=== PATIENT | male | born 1980 | race Caucasian/White ===

== ENCOUNTER 2017-06-15 02:46 | Emergency (ER) | payer SELFPAY ==
[~2017-06-15] VITALS: Ht 175.3 cm; Wt 70.3 kg
[~2017-06-15 02:46] MED LIST: IBUP600T16 PO
[2017-06-15 02:50] VITALS: BP 143/96
--- NOTE | 2017-06-15 04:18 | PHYS DOC ---
Past History Past Medical History: Hepatitis Past Surgical History: No Surgical History Alcohol Use: Sober Drug Use: None Adult General Chief Complaint Chief Complaint: foot pain HPI HPI Patient is a 36 year old male who presents with foot blisters bilaterally. The patient states he noticed blisters on bilateral feet this morning. He spends a lot of time walking. Denies fevers, chills, drainage, erythema/warmth/swelling. Review of Systems Review of Systems Constitutional: Denies fever or chills Respiratory: Denies cough or shortness of breath Cardiovascular: Denies chest pain Musculoskeletal: reports foot blisters Integument: reports foot blisters All other systems were reviewed and found to be within normal limits, except as documented in this note. Allergies Allergies Allergies Coded Allergies Type Severity Reaction Last Updated Verified No Known Drug Allergies 03/21/16 No Physical Exam Physical Exam Constitutional: Well developed, well nourished, no acute distress, non-toxic appearance. HENT: Normocephalic, atraumatic, bilateral external ears normal, oropharynx moist, nose normal. Eyes: conjunctiva normal, no discharge. Cardiovascular: no edema. Lungs & Thorax: no respiratory distress. Abdomen: nondistended. Skin: bilateral plantar surfaces of feet with small blisters over MTP joints, no erythema/warmth/swelling, no purulent drainage. blisters had been unroofed.. Extremities: blisters to feet bilaterally as above Neurologic: Alert and oriented X 3 EKG EKG [] Radiology/Procedures Radiology/Procedures [] Course & Med Decision Making Course & Med Decision Making Pertinent Labs and Imaging studies reviewed. (See chart for details) The patient presents with bilateral foot blisters. No sign of infection, localized to MTP. RN provided wound care. Recommend antibiotic ointment, mole skin, keep feet clean & air dry. Consider well fitted shoes. Follow up with primary care for additional concerns. Come back for signs/symptoms of wound infection or otherwise worsening condition. Discharged home in stable condition. [] Dragon Disclaimer Dragon Disclaimer This electronic medical record was generated, in whole or in part, using a voice recognition dictation system. Departure Departure: Impression: Primary Impression: Blister of foot Disposition: HOME, SELF-CARE Condition: STABLE Referrals: PCP,NO (PCP) Patient Instructions: Blisters Additional Instructions: You were seen in the emergency department today for foot blisters. Please keep feet clean & dry, allow feet to air dry when not walking, buy moleskin to protect feet, apply antibiotic ointment to prevent infection. Consider being fitted for new shoes to ensure proper fit. Follow up as needed with primary care or podiatry for additional concerns. Problem Qualifiers Primary Impression: Blister of foot Encounter type: initial encounter Laterality: unspecified laterality Qualified Codes: S90.829A - Blister (nonthermal), unspecified foot, initial encounter NELI SANTIAGO MD Jun 15, 2017 04:18
== END 2017-06-15 04:20 | disposition home or self-care (01) ==
LOC: ER 02:46
DX: S90.822A Blister (nonthermal), left foot, initial encounter (principal); S90.821A Blister (nonthermal), right foot, initial encounter; X58.XXXA Exposure to other specified factors, initial encounter; Y93.89 Activity, other specified; Y99.8 Other external cause status; Y92.89 Other specified places as the place of occurrence of the external cause
CPT/HCPCS: 99281; 99283

== ENCOUNTER 2021-10-29 05:32 | Emergency (ER) | payer SELFPAY ==
[~2021-10-29] VITALS: Ht 175.3 cm; Wt 64.1 kg
--- NOTE | 2021-10-29 05:36 | PHYS DOC ---
Past History Past Medical History: Other Past Surgical History: No Surgical History Alcohol Use: None Drug Use: Marijuana, Methamphetamine, Opiates General Adult HPI: HPI: ".. I having bad thoughts about living.... I am not really suicidal.. I could never kill myself.. .. I have had some chest pain tonight.. some heart racing....I feel like I am in high speed pursuit.. I am depressed and I do have anxiety.. but not thinking of killing my self..." Patient is a 41 year old male who presents with above hx and multiple complaints primarily chest pain and tachycardia. Patient denies any illicit drug use. Patient does smoke. No recent travel. Denies any specific trauma. Patient does have contusions to the left side of chest. No history immuno - suppression. Patient denies any thoughts of suicide or homicide.. Patient does complain of depression and anxiety. Review of Systems: Review of Systems: Constitutional: Denies fever or chills Eyes: Denies change in visual acuity HENT: Denies nasal congestion or sore throat Respiratory: Denies cough or shortness of breath Cardiovascular: Complains of chest wall pain, complaints of tachycardia GI: Denies abdominal pain, nausea, vomiting, bloody stools or diarrhea : Denies dysuria Musculoskeletal: Denies back pain or joint pain Integument: Denies rash Neurologic: Denies headache, focal weakness or sensory changes Endocrine: Denies polyuria or polydipsia Lymphatic: Denies swollen glands Psychiatric: Complains of depression or anxiety-but denies suicidal ideation or homicidal ideation Family History: Family History: Noncontributory to presentation Current Medications: Current Meds: See nursing for home meds Allergies: Allergies: Allergies Coded Allergies Type Severity Reaction Last Updated Verified No Known Drug Allergies 03/21/16 No Physical Exam: PE: Constitutional: , no acute distress, non-toxic appearance. [] HENT: Normocephalic, atraumatic, bilateral external ears normal, oropharynx moist, no oral exudates, nose normal. Extremely poor dentition Eyes: PERRLA, EOMI, conjunctiva normal, no discharge. [] Neck: Normal range of motion, no tenderness, supple, no stridor. [] Cardiovascular: Tachycardia heart rate regular rhythm, no murmur [] Lungs & Thorax: Bilateral breath sounds equal apex with scattered wheezes on auscultation [] patient does have contusions and scrapes/abrasions to the left chest wall Abdomen: Bowel sounds normal, soft, no tenderness, no masses, no pulsatile masses. [] Skin: Warm, dry, no erythema, no rash. [Tattoos. Back: No tenderness, no CVA tenderness. [] Extremities: No tenderness, no cyanosis, no clubbing, ROM intact, no edema. No cording. Neurologic: Alert and oriented X 3, moves extremities on request, has distal sensory, no focal deficits noted. Patient amatory without problems. Psychologic: Affect anxious, judgement normal, mood normal. Denies suicidal or homicidal ideation EKG: EKG: [] Radiology/Procedures: Radiology/Procedures: [] Heart Score: C/O Chest Pain: Yes Risk Factors: Risk Factors: DM, Current or recent (<one month) smoker, HTN, HLP, family history of CAD, obesity. Risk Scores: Score 0 - 3: 2.5% MACE over next 6 weeks - Discharge Home Score 4 - 6: 20.3% MACE over next 6 weeks - Admit for Clinical Observation Score 7 - 10: 72.7% MACE over next 6 weeks - Early Invasive Strategies Course & Med Decision Making: Course & Med Decision Making Pertinent Labs and Imaging studies reviewed. (See chart for details)\\ Pt endorsed to Dr. Yadav at shift change. He will make disposition. Labs, CXR and EKG pending at shift change. Impression: 1. Complaints of dysrhythmia- Tachycardia 2. Hx. Depression 3. Hx. Anxiety. [] Dragon Disclaimer: Dragon Disclaimer: This electronic medical record was generated, in whole or in part, using a voice recognition dictation system. Departure Departure: Referrals: PCP,NO (PCP) Dragon Disclaimer This chart was dictated in whole or in part using Voice Recognition software in a busy, high-work load, and often noisy Emergency Department environment. It may contain unintended and wholly unrecognized errors or omissions. ERAN GHOSH MD Oct 29, 2021 05:35
[2021-10-29 05:43] VITALS: BP 126/67
[2021-10-29] MEDS ORDERED: IV RINGERS SOLUTION,LACTATED 1,000 ML IV SCH (05:45)
--- NOTE | 2021-10-29 05:59 | EKG ---
[address] [address] Test Date: 2021-10-29 Test Time: 05:53:32 Pat Name: JHOANA TRAN Department: Room: Gender: M Medication Care Manager: : 1980 Requested By: ERAN GHOSH Order Number: [id number] Reading MD: Seveirano Clemons Measurements Intervals [place] Rate: 125 P: 13 [place]: 118 QRS: 67 QRSD: 84 T: 89 QT: 322 QTc: 467 Interpretive Statements SINUS TACHYCARDIA Electronically Signed On 10-30-2021 18:13:35 CDT by Severiano Clemons
[2021-10-29 06:07] LABS: BASO # 0.1 x10^3/uL (0.0-0.2); BASO % 1 % (0-3); EOS % 0 % (0-3); HEMATOCRIT 48.2 % (39.0-53.0); HEMOGLOBIN 16.4 g/dL (13.0-17.5); LYMPH # 1.8 x10^3/uL (1.0-4.8); LYMPH % 10 % (24-48); MEAN CORPUSCULAR HEMOGLOBIN 31 pg (25-35); MEAN CORPUSCULAR HGB CONC 34 g/dL (31-37); MEAN CORPUSCULAR VOLUME 92 fL (79-100); MONO # 1.9 x10^3/uL (0.0-1.1); MONO % 10 % (0-9); NEUT # 14.5 x10^3uL (1.8-7.7); NEUT % 79 % (31-73); PLATELET COUNT 292 x10^3/uL (140-400); RED BLOOD COUNT 5.23 x10^6/uL (4.30-5.70); RED CELL DISTRIBUTION WIDTH 12.7 % (11.5-14.5); WHITE BLOOD COUNT 18.2 x10^3/uL (4.0-11.0)
[2021-10-29 06:29] LABS: CALCIUM 9.1 mg/dL (8.5-10.1); GFR 82.3; POTASSIUM 4.6 mmol/L (3.5-5.1)
[2021-10-29 06:32] LABS: ETHANOL < 10 mg/dL (0-10); SALIC 1.5 mg/dL (2.8-20.0)
[2021-10-29 06:35] LABS: ACETAMIN < 2.0 mcg/mL (10-30)
[2021-10-29 06:45] LABS: ALBUMIN 4.2 g/dL (3.4-5.0); DIRECT BILIRUBIN 0.4 mg/dL (0.0-0.2); TOTAL BILIRUBIN 1.2 mg/dL (0.2-1.0); TOTAL PROTEIN 7.3 g/dL (6.4-8.2)
[2021-10-29 07:58] LABS: % ATYL 1 % (0-0); % BANDS 5 % (0-9); % LYMPHS 5 % (24-48); % MONOS 6 % (0-10); % SEGS 83 % (35-66)
[2021-10-29 08:01] LABS: PLT ESTIMATE ADEQUATE (ADEQUATE)
== END 2021-10-29 06:20 | disposition left against medical advice (07) ==
LOC: ER 05:32
DX: R00.0 Tachycardia, unspecified (principal); F32.9 Major depressive disorder, single episode, unspecified; F41.9 Anxiety disorder, unspecified
CPT/HCPCS: 36415; 80048; 80076; 80329; 82550; 83690; 83735; 83880; 84443; 84484; 85007; 85025; 85379; 85610; 85730; 93005; 96360; 99284; G0480; J7120